=== PATIENT | male | born 1970 | race Caucasian/White ===

== ENCOUNTER 2017-03-01 18:05 | Emergency (ER) | payer SELFPAY ==
[~2017-03-01] VITALS: Ht 167.6 cm; Wt 65.0 kg
[2017-03-01] MEDS ORDERED: ONDANSETRON HCL 4MG/2ML VIAL IV ONE (19:45)
[2017-03-01] MEDS ORDERED: SODIUM CHLORIDE 0.9% 1,000 ML IV ONE (19:45)
[2017-03-01] MEDS ORDERED: MORPHINE SULFATE 4 MG/ML CPJ (NOT FOR IM USE) IV ONE (19:45)
[2017-03-01 21:00] VITALS: BP 121/66
== END 2017-03-01 21:25 | disposition home or self-care (01) ==
LOC: ER 18:11
DX: F10.229 Alcohol dependence with intoxication, unspecified (principal); S02.5XXB Fracture of tooth (traumatic), initial encounter for open fracture; R04.0 Epistaxis; Y90.9 Presence of alcohol in blood, level not specified; Y04.0XXA Assault by unarmed brawl or fight, initial encounter; Y93.89 Activity, other specified; Y92.488 Other paved roadways as the place of occurrence of the external cause
CPT/HCPCS: 70450; 70486; 96361; 96374; 96375; 99284; J2270; J2405; J7030; Z7610

== ENCOUNTER 2017-06-12 10:58 | Emergency (ER) | payer MEDICAID ==
[~2017-06-12] VITALS: Ht 165.1 cm; Wt 65.0 kg
[2017-06-13] MEDS ORDERED: NAPROXEN 500MG TABLET PO ONE (01:00)
[2017-06-13] MEDS ORDERED: HYDROCODONE/ACETAMINOPHEN 5/325MG TABLET PO ONE (01:00)
[2017-06-13 04:45] VITALS: BP 102/61
== END 2017-06-13 07:34 | disposition home or self-care (01) ==
LOC: ER 11:06
DX: S82.831A Other fracture of upper and lower end of right fibula, initial encounter for closed fracture (principal); Y08.89XA Assault by other specified means, initial encounter; Y93.89 Activity, other specified; Y92.89 Other specified places as the place of occurrence of the external cause; Y99.8 Other external cause status; M10.9 Gout, unspecified
CPT/HCPCS: 29515; 73610; 73630; 73700; 99284; Z7610

== ENCOUNTER 2018-06-10 14:05 | Emergency (ER) | payer SELFPAY ==
[~2018-06-10] VITALS: Ht 162.6 cm; Wt 73.0 kg
[2018-06-10] MEDS ORDERED: LIDOCAINE HCL/PF 1% 10 MG/ML 5ML VIAL IJ ONE (18:45)
[2018-06-10] MEDS ORDERED: BACITRACIN ZINC OINT UDPKT TOP ONE (18:45)
[2018-06-10] MEDS ORDERED: TETANUS, DIPHTHERIA, PERTUSSIS VAC/PF 0.5ML (>7YR OLD) IM ONE (18:45)
[2018-06-10 20:51] VITALS: BP 115/75
== END 2018-06-10 20:53 | disposition home or self-care (01) ==
LOC: ER 14:05
DX: S01.311A Laceration without foreign body of right ear, initial encounter (principal); S00.93XA Contusion of unspecified part of head, initial encounter; F10.20 Alcohol dependence, uncomplicated; W13.2XXA Fall from, out of or through roof, initial encounter; Y93.89 Activity, other specified; Y92.89 Other specified places as the place of occurrence of the external cause; Y99.8 Other external cause status; Y90.9 Presence of alcohol in blood, level not specified
CPT/HCPCS: 12011; 70450; 72125; 90471; 90715; 99284; J3490

== ENCOUNTER 2022-01-16 11:45 | Emergency (ER) | payer MEDICAID ==
[~2022-01-16] VITALS: Ht 157.5 cm; Wt 73.0 kg
[2022-01-16] MEDS ORDERED: KETOROLAC 60MG/2ML VIAL IM ONE (14:30)
[2022-01-16] MEDS ORDERED: TRAMADOL 50MG TABLET PO ONE (14:30)
[2022-01-16 14:54] VITALS: BP 134/83
[2022-01-16] MEDS ORDERED: IBUP-2029 MT (18:27)
== END 2022-01-16 18:41 | disposition home or self-care (01) ==
LOC: ER 11:45 → CANBEDREQ 22:20
DX: S02.40CA Maxillary fracture, right side, initial encounter for closed fracture (principal); Y08.89XA Assault by other specified means, initial encounter; Y93.89 Activity, other specified; Y92.89 Other specified places as the place of occurrence of the external cause; Y99.8 Other external cause status; Z88.0 Allergy status to penicillin; K08.89 Other specified disorders of teeth and supporting structures
CPT/HCPCS: 70486; 96372; 99284; J1885